=== PATIENT | female | born 1970 | race Caucasian/White ===

== ENCOUNTER 2018-04-12 18:45 | Emergency (ER) | payer OTHER, SELFPAY ==
[2018-04-12 18:53] VITALS: BP 120/60; PULSE 79; RESP 16; TEMP 36.7; O2SAT 100; BMI 23.6
--- NOTE | 2018-04-12 19:14 | ED.ABDPAIN ---
HPI - Abdominal Pain <Nelli Cuevas PA-C - Last Filed: 04/12/18 22:29> General Chief Complaint: Abdominal Pain Stated Complaint: LOWER ABDOMINAL PAIN, SENT BY WALK IN FOR CT Time Seen by Provider: 04/12/18 19:00 Source: patient Mode of arrival: ambulatory Limitations: no limitations History of Present Illness HPI narrative: This healthy 47-year-old female is sent here by the walk-in clinic due to concern for appendicitis. She states that she had onset of abdominal pain late yesterday afternoon that has not improved. She states that pain worsens with walking or any kind of bumping, as well as sometimes with sitting up straight. It is constant at some level. When the pain is worse, she also has nausea. She has not had any vomiting. She denies fever. She denies bowel habit change and states she had 2 small bowel movements today, normal bowel movement yesterday, no blood in the stools. She denies any dysuria or urinary symptoms, no hematuria. No new vaginal discharge. She states she has been able to tolerate fluids, has eaten little today due to pain but is able to tolerate small amounts of food. She denies any chest pain, dyspnea new pain or swelling in her extremities or other new symptoms. She denies any known exposures or recent travel Related Data Home Medications Medication Instructions Recorded Confirmed CA PANTOTHENATE/FOLIC ACID/VIT 1 tab PO QDAY #0 08/11/11 04/12/18 (MULTIVITAMIN) Fish Oil (#OMEGA 3) 1,000 mg PO QDAY #0 08/11/11 04/12/18 Lactobacillus acidophilus capsule 10,000 mmu cells PO DAILY 04/12/18 04/12/18 mecobalamin (vitamin B12) 5,000 mcg PO tab 04/12/18 04/12/18 mcg disintegrating tablet Allergies Allergy/AdvReac Type Severity Reaction Status Date / Time Sulfa (Sulfonamide Allergy Unknown Verified 04/12/18 19:05 Antibiotics) Exam <Nelli Cuevas PA-C - Last Filed: 04/12/18 22:29> Narrative Exam Narrative: GENERAL APPEARANCE: Patient sitting comfortably, in no distress. HEENT: PERRL, EOMI, no scleral icterus NECK: Supple LUNGS: Clear to auscultation bilaterally. HEART: Rate and rhythm regular, normal S1 and S2, no S3 or S4. ABDOMEN: Soft, nondistended, bowel sounds present x 4 quadrants, no masses palpable, no hepatosplenomegaly. Moderate tenderness throughout the lower quadrants with exquisite tenderness and rebound at McBurney's point, no guarding, no CVAT, negative obturator, psoas and [place] heel-jar EXTREMITIES: No edema, no cyanosis DERMATOLOGIC: No jaundice or exanthem NEUROLOGIC: Alert and oriented with normal speech and coordination Initial Vital Signs Initial Vital Signs: Vital Signs Temperature 98.0 F 04/12/18 18:53 Pulse Rate 79 04/12/18 18:53 Respiratory Rate 16 04/12/18 18:53 Blood Pressure 120/60 04/12/18 18:53 Pulse Oximetry 100 04/12/18 18:53 <Roque Mcclain DO - Last Filed: 04/13/18 02:30> Initial Vital Signs Initial Vital Signs: Vital Signs Temperature 98.0 F 04/12/18 18:53 Pulse Rate 79 04/12/18 18:53 Respiratory Rate 16 04/12/18 18:53 Blood Pressure 120/60 04/12/18 18:53 Pulse Oximetry 100 04/12/18 18:53 Course <Nelli Cuevas PA-C - Last Filed: 04/12/18 22:29> Additional Information: I spoke with Dr. Monreal, on-call for surgery and reviewed patient history and exam findings as well as lab and CT results. She is feeling significantly better, has been tolerating oral fluids all along at home and small amounts of food. He felt that she did not need admission tonight. She does not have a PCP, so he advised that she could follow up at his office tomorrow. Advised her that she should call their 1st thing in the morning for appointment unless drastically improved, and she is agreeable. She also agreed to return here if any acutely worsening symptoms again, or new symptoms such as vomiting or fever Orders Ordered: ED Orders 04/12/18 19:22 CT abdomen pelvis w con Stat 04/12/18 19:50 C-Reactive Protein Quant Stat Complete Blood Count AUTO DIFF Stat Comprehensive Metabolic Panel Stat Lipase Stat 04/12/18 20:27 Lactate (Lactic Acid) Stat Discontinued Medications Sodium Chloride (Normal Saline 0.9%) 1,000 mls @ 1,000 mls/hr IV BOLUS ONE Stop: 04/12/18 20:00 Last Infusion: 04/12/18 22:05 Dose: 1,000 mls/hr Admin: 04/12/18 19:36 Dose: 1,000 mls/hr Ketorolac Tromethamine (Toradol) 30 mg IV NOW ONE Stop: 04/12/18 19:22 Last Admin: 04/12/18 19:35 Dose: 30 mg Ondansetron HCl (Zofran) 4 mg IV NOW ONE Stop: 04/12/18 19:22 Last Admin: 04/12/18 19:35 Dose: 4 mg Ondansetron HCl (Zofran Odt Prepack) 1 bottle MISC SEEINSTR ONE Stop: 04/12/18 21:51 Last Admin: 04/12/18 22:04 Dose: 1 bottle Vital Signs - 8 hr 04/12/18 18:53 04/12/18 21:37 04/12/18 22:16 Temperature 98.0 F Pulse Rate 79 74 Respiratory Rate 16 12 Blood Pressure 120/60 Blood Pressure [Right Arm] 112/63 Pulse Oximetry 100 100 99 <Roque Mcclain, DO - Last Filed: 04/13/18 02:30> Orders Ordered: ED Orders 04/12/18 19:22 CT abdomen pelvis w con Stat 04/12/18 19:50 C-Reactive Protein Quant Stat Complete Blood Count AUTO DIFF Stat Comprehensive Metabolic Panel Stat Lipase Stat 04/12/18 20:27 Lactate (Lactic Acid) Stat Discontinued Medications Sodium Chloride (Normal Saline 0.9%) 1,000 mls @ 1,000 mls/hr IV BOLUS ONE Stop: 04/12/18 20:00 Last Infusion: 04/12/18 22:05 Dose: 1,000 mls/hr Admin: 04/12/18 19:36 Dose: 1,000 mls/hr Ketorolac Tromethamine (Toradol) 30 mg IV NOW ONE Stop: 04/12/18 19:22 Last Admin: 04/12/18 19:35 Dose: 30 mg Ondansetron HCl (Zofran) 4 mg IV NOW ONE Stop: 04/12/18 19:22 Last Admin: 04/12/18 19:35 Dose: 4 mg Ondansetron HCl (Zofran Odt Prepack) 1 bottle MISC SEEINSTR ONE Stop: 04/12/18 21:51 Last Admin: 04/12/18 22:04 Dose: 1 bottle Vital Signs - 8 hr 04/12/18 18:53 04/12/18 21:37 04/12/18 22:16 Temperature 98.0 F Pulse Rate 79 74 Respiratory Rate 16 12 Blood Pressure 120/60 Blood Pressure [Right Arm] 112/63 Pulse Oximetry 100 100 99 MDM - Abdominal Pain <Nelli Cuevas PA-C - Last Filed: 04/12/18 22:29> Lab Data Result diagrams: 04/12/18 19:50 04/12/18 19:50 Lab Results 04/12/18 04/12/18 04/12/18 Range/Units 19:50 19:50 20:27 WBC 9.3 (4.5-11.0) X10^3/uL RBC 4.67 (4.0-5.2) X10^6/uL Hgb 14.7 (12.0-16.0) g/dL Hct 42.5 (36-46) % MCV 91.2 (80-100) fL MCH 31.5 (26-34) PG MCHC 34.6 (30-36) % RDW 12.4 (11.6-14.8) % Plt Count 193 (150-400) X10^3/uL Neut % (Auto) 75.2 H (50-75) % Lymph % (Auto) 13.9 L (25-40) % [place] % (Auto) 9.6 (3-14) % Eos % (Auto) 0.9 L (2-4) % Baso % (Auto) 0.4 (0-2) % Neut # (Auto) 7000 H (9975-3587) /uL Sodium 139 (137-145) mmol/L Potassium 3.5 (3.4-5.1) mmol/L Chloride 100 (98-107) mmol/L Carbon Dioxide 31 (22-32) mmol/L BUN 16 (7-17) mg/dL Creatinine 0.70 (0.52-1.04) mg/dL Estimated GFR > 60.0 (>60) mL/min BUN/Creatinine Ratio 22.9 H (6-22) Glucose 103 H (70-100) mg/dL Lactate 1.1 (0.7-2.1) mmol/L Calcium 9.4 (8.4-10.2) mg/dL Total Bilirubin 1.1 (0.2-1.3) mg/dL AST 24 (14-36) IU/L ALT 21 (9-52) IU/L Alkaline Phosphatase 62 (38-126) U/L C-Reactive Protein 5.9 H (<1.0) mg/dL Total Protein 7.2 (6.3-8.2) g/dL Albumin 4.5 (3.5-5.0) g/dL Globulin 2.7 (1.7-4.1) g/dL Albumin/Globulin Ratio 1.7 (1.0-2.8) Lipase 55 (23-300) U/L Point of care testing: Urine Dip Bedside Urine Glucose Negative Bedside Urine Bilirubin - Negative Bedside Urine Ketone - Negative Bedside Urine Occult Blood + Bedside Urine Protein - Negative Bedside Urine Urobilinogen - Negative Bedside Urine Nitrite - Negative Bedside Urine Leukocytes - Negative Esterase Imaging Data CT scan - abdomen: Radiologist's impression: [place] [address] CT Scan Report Signed Patient: Melisa Muhammad MR#: [id number] : 1970 Acct:[id number] Age/Sex: 47 / F Date of Service: 04/12/18 Loc: ED Accession Number: [id number] Procedure: CT abdomen pelvis w con Ordering Provider: Nelli Cuevas P.A-C PROCEDURE: CT ABDOMEN PELVIS W CON INDICATIONS: R. LQ pain TECHNIQUE: After the administration of oral and intravenous contrast, 5 mm thick sections acquired from the diaphragms to the symphysis. 5 mm thick coronal and sagittal reformats were performed. For radiation dose reduction, the following was used: automated exposure control, adjustment of mA and/or kV according to patient size. COMPARISON: None. FINDINGS: Image quality: Excellent. ABDOMEN: Lung bases: Lung bases are clear. Heart size is normal. Solid organs: There is a small hypodensity in the right hepatic dome measuring up to 9 mm which is too small to characterize but likely represents a cyst. The gallbladder appears within normal limits without calcified gallstones. Biliary system is non-dilated. Pancreas enhances normally. Spleen is normal in size and enhancement. No adrenal nodules. Kidneys are normal in size and enhancement, without hydronephrosis. Peritoneum and bowel: Stomach and small bowel loops are normal in caliber and wall thickness. The appendix is at the upper limits of normal in size measuring approximately 7 mm in diameter. There is minimal wall thickening proximally but there is intraluminal gas demonstrated. There is possible minimal associated fat stranding. There is mild segmental wall thickening in the sigmoid colon. Colonic diverticula demonstrated without acute diverticulitis. There is a small amount of free fluid in the pelvis which appears within physiologic limits. Nodes and vessels: No retroperitoneal or mesenteric adenopathy. Aorta and inferior vena cava are normal in caliber. Miscellaneous: No ventral hernias. PELVIS: Genitourinary: Bladder wall thickness is normal. There are bilateral heterogeneous adnexal mass lesions measuring approximately 3.9 x 3.0 cm on the left and 2.7 x 3.0 cm in the right posterior cul-de-sac. Miscellaneous: No inguinal hernias or adenopathy. Bones: No suspicious bony lesions. No vertebral body compression fractures. IMPRESSION: 1. Borderline enlargement and wall thickening of the appendix without definite evidence of appendicitis at this time. Recommend continued clinical followup. 2. Bilateral heterogeneous adnexal masses may represent possible endometriomas but the findings are nonspecific and the differential is broad. Recommend further evaluation with pelvic ultrasound. 3. Mild segmental wall thickening in the sigmoid colon consistent with a nonspecific infectious or inflammatory colitis. Dictated by: Rich Sinha M.D. on 04/12/2018 at 20:52 Approved by: Rich Sinha M.D. on 04/12/2018 at 21:02 <Roque Mcclain DO - Last Filed: 04/13/18 02:30> Lab Data Lab Results 04/12/18 04/12/18 04/12/18 Range/Units 19:50 19:50 20:27 WBC 9.3 (4.5-11.0) X10^3/uL RBC 4.67 (4.0-5.2) X10^6/uL Hgb 14.7 (12.0-16.0) g/dL Hct 42.5 (36-46) % MCV 91.2 (80-100) fL MCH 31.5 (26-34) PG MCHC 34.6 (30-36) % RDW 12.4 (11.6-14.8) % Plt Count 193 (150-400) X10^3/uL Neut % (Auto) 75.2 H (50-75) % Lymph % (Auto) 13.9 L (25-40) % [place] % (Auto) 9.6 (3-14) % Eos % (Auto) 0.9 L (2-4) % Baso % (Auto) 0.4 (0-2) % Neut # (Auto) 7000 H (0501-9591) /uL Sodium 139 (137-145) mmol/L Potassium 3.5 (3.4-5.1) mmol/L Chloride 100 (98-107) mmol/L Carbon Dioxide 31 (22-32) mmol/L BUN 16 (7-17) mg/dL Creatinine 0.70 (0.52-1.04) mg/dL Estimated GFR > 60.0 (>60) mL/min BUN/Creatinine Ratio 22.9 H (6-22) Glucose 103 H (70-100) mg/dL Lactate 1.1 (0.7-2.1) mmol/L Calcium 9.4 (8.4-10.2) mg/dL Total Bilirubin 1.1 (0.2-1.3) mg/dL AST 24 (14-36) IU/L ALT 21 (9-52) IU/L Alkaline Phosphatase 62 (38-126) U/L C-Reactive Protein 5.9 H (<1.0) mg/dL Total Protein 7.2 (6.3-8.2) g/dL Albumin 4.5 (3.5-5.0) g/dL Globulin 2.7 (1.7-4.1) g/dL Albumin/Globulin Ratio 1.7 (1.0-2.8) Lipase 55 (23-300) U/L Point of care testing: Urine Dip Bedside Urine Glucose Negative Bedside Urine Bilirubin - Negative Bedside Urine Ketone - Negative Bedside Urine Occult Blood + Bedside Urine Protein - Negative Bedside Urine Urobilinogen - Negative Bedside Urine Nitrite - Negative Bedside Urine Leukocytes - Negative Esterase Discharge Plan Departure Patient Disposition: Home, Self-Care Clinical Impression: Acute right lower quadrant pain Discharge Date/Time: 04/12/18 22:18 Interventions: ED Discharge Assessment Last Done: 04/12/18 22:16 Instructions: DI for Abdominal Pain-Adult Activity Restrictions/Additional Instructions: You can use the antinausea medicine that we gave you as needed. You should return as we talked about if you have any acutely worsening symptoms such as more pain or vomiting, or new symptoms such as fever. Drink clear fluids tonight and you can have a little bit of bland food such as applesauce, bananas, crackers. Unless you are much better in the morning, please call [facility] first thing and let them know we talked with Dr. Monreal about you in the ED last night and he wanted you to be seen in their office for follow up on Wednesday (no later) Prescriptions: No Action mecobalamin (vitamin B12) 5,000 mcg tablet,disintegrating PO RF: 0 Lactobacillus acidophilus capsule 10,000 mmu cells PO DAILY RF: 0 CA PANTOTHENATE/FOLIC ACID/VIT (MULTIVITAMIN) 1 tab PO QDAY Qty: 0 RF: 0 Fish Oil (#OMEGA 3) 1,000 mg PO QDAY Qty: 0 RF: 0 Referrals: Waqar Monreal MD [Physician] - <Roque Mcclain DO - Last Filed: 04/13/18 02:30> Cosign ED Attending Coselliotature Attestation: I was immediately available in the department for consultation. Documentation has been reviewed. I agree with assessment and plan.
--- NOTE | 2018-04-12 19:22 | DI.CT.S_ITS ---
PROCEDURE: CT ABDOMEN PELVIS W CON INDICATIONS: R. LQ pain TECHNIQUE: After the administration of oral and intravenous contrast, 5 mm thick sections acquired from the diaphragms to the symphysis. 5 mm thick coronal and sagittal reformats were performed. For radiation dose reduction, the following was used: automated exposure control, adjustment of mA and/or kV according to patient size. COMPARISON: None. FINDINGS: Image quality: Excellent. ABDOMEN: Lung bases: Lung bases are clear. Heart size is normal. Solid organs: There is a small hypodensity in the right hepatic dome measuring up to 9 mm which is too small to characterize but likely represents a cyst. The gallbladder appears within normal limits without calcified gallstones. Biliary system is non-dilated. Pancreas enhances normally. Spleen is normal in size and enhancement. No adrenal nodules. Kidneys are normal in size and enhancement, without hydronephrosis. Peritoneum and bowel: Stomach and small bowel loops are normal in caliber and wall thickness. The appendix is at the upper limits of normal in size measuring approximately 7 mm in diameter. There is minimal wall thickening proximally but there is intraluminal gas demonstrated. There is possible minimal associated fat stranding. There is mild segmental wall thickening in the sigmoid colon. Colonic diverticula demonstrated without acute diverticulitis. There is a small amount of free fluid in the pelvis which appears within physiologic limits. Nodes and vessels: No retroperitoneal or mesenteric adenopathy. Aorta and inferior vena cava are normal in caliber. Miscellaneous: No ventral hernias. PELVIS: Genitourinary: Bladder wall thickness is normal. There are bilateral heterogeneous adnexal mass lesions measuring approximately 3.9 x 3.0 cm on the left and 2.7 x 3.0 cm in the right posterior cul-de-sac. Miscellaneous: No inguinal hernias or adenopathy. Bones: No suspicious bony lesions. No vertebral body compression fractures. IMPRESSION: 1. Borderline enlargement and wall thickening of the appendix without definite evidence of appendicitis at this time. Recommend continued clinical followup. 2. Bilateral heterogeneous adnexal masses may represent possible endometriomas but the findings are nonspecific and the differential is broad. Recommend further evaluation with pelvic ultrasound. 3. Mild segmental wall thickening in the sigmoid colon consistent with a nonspecific infectious or inflammatory colitis. Dictated by: Rich Sinha M.D. on 04/12/2018 at 20:52 Approved by: Rich Sinah M.D. on 04/12/2018 at 21:02
[2018-04-12] MEDS: KETOROLAC 60 MG/2 ML VIAL 30 MG IV (19:35)
[2018-04-12] MEDS: ONDANSETRON 4 MG/2 ML INJ IV (19:35)
[2018-04-12] MEDS: SODIUM CHLORIDE 0.9% 1,000 ML 1000 ML IV (19:36)
--- NOTE | 2018-04-12 20:09 | PC.NURSE ---
oral contrast began at 1949. Maggy in CT scan alerted. Pt denies nausea at present. IV fluids infusing without difficulty or s/sx of irritation or infilitration.
[2018-04-12 20:12] LABS: Add Manual Diff / Slide Review NO; Basophils Percent Auto 0.4 % (0-2); Eosinophils Percent Auto 0.9 % (2-4); Hematocrit 42.5 % (36-46); Hemoglobin 14.7 g/dL (12.0-16.0); Lymphocytes Percent Auto 13.9 % (25-40); Mean Corpuscular HGB Conc 34.6 % (30-36); Mean Corpuscular Hemoglobin 31.5 PG (26-34); Mean Corpuscular Volume 91.2 fL (80-100); Monocytes Percent Auto 9.6 % (3-14); Neutrophils Absolute Auto 7000 /uL (3000-5900); Neutrophils Percent Auto 75.2 % (50-75); Platelet Count 193 X10^3/uL (150-400); Red Blood Cell Count 4.67 X10^6/uL (4.0-5.2); Red Cell Distribution Width 12.4 % (11.6-14.8); White Blood Cell Count 9.3 X10^3/uL (4.5-11.0)
[2018-04-12 20:31] LABS: Alanine Aminotransferase 21 IU/L (9-52); Albumin 4.5 g/dL (3.5-5.0); Albumin Globulin Ratio 1.7 (1.0-2.8); Alkaline Phosphatase 62 U/L (38-126); Aspartate Aminotransferase 24 IU/L (14-36); BUN Creatinine Ratio 22.9 (6-22); Bilirubin Total 1.1 mg/dL (0.2-1.3); Blood Urea Nitrogen 16 mg/dL (7-17); C-Reactive Protein Quant 5.9 mg/dL (<1.0); Calcium 9.4 mg/dL (8.4-10.2); Carbon Dioxide 31 mmol/L (22-32); Chloride 100 mmol/L (98-107); Estimated Glomerular Filt Rate > 60.0 mL/min (>60); Globulin 2.7 g/dL (1.7-4.1); Glucose 103 mg/dL (70-100); HEMOLYSIS 19 (0-50); Lipase 55 U/L (23-300); Potassium 3.5 mmol/L (3.4-5.1); Sodium 139 mmol/L (137-145); Total Protein 7.2 g/dL (6.3-8.2)
[2018-04-12 20:51] LABS: Lactate (Lactic Acid) 1.1 mmol/L (0.7-2.1)
[2018-04-12 21:37] VITALS: BP 112/63; PULSE 74; RESP 12; O2SAT 100
[2018-04-12] MEDS: ONDANSETRON 4 MG ODT PREPACK 1 BOTTLE MISC (22:04)
[2018-04-12 22:16] VITALS: O2SAT 99
[2018-04-14 10:21] LABS: Cancer Antigen 125 10 U/mL (0-35)
== END 2018-04-12 22:18 | disposition home or self-care (01) ==
PROVIDERS: Specialist; Emergency Provider Internal Medicine; PCP Nurse Practitioner
DX: R10.31 Right lower quadrant pain (principal)
CPT/HCPCS: 36591; 74177; 80053; 81003; 83605; 83690; 85025; 86140; 86304; 96361; 96374; 96375; 99283; 99285; J1885; J2405; Q9967

== ENCOUNTER → 2018-04-13 16:42 | Outpatient (CLI) | payer OTHER, SELFPAY ==
--- NOTE | 2018-04-13 16:43 | DI.US.S_ITS ---
PROCEDURE: US PELVIC COMPLETE INDICATIONS: pelvic masses on CT scan TECHNIQUE: Real-time scanning was performed of the pelvic organs, with image documentation. Additional endovaginal scanning was necessary due to incomplete visualization of the adnexal and endometrial structures by transabdominal scanning. COMPARISON: [facility], CT, CT ABDOMEN PELVIS W CON, 04/12/2018, 20:22. FINDINGS: Transabdominal scanning: Limited scanning through the kidneys shows no hydronephrosis. No pathologic free abdominal or pelvic fluid. Endovaginal scanning: Uterus: Uterus is surgically absent. Ovaries: The right ovary measures 3 x 1.9 x 1.7 cm. On the right ovary, there is a solid heterogeneous mass that measures 19 x 17 x 16 mm. The left ovary is not seen. No left adnexal masses are seen. Along the midline of the pelvis, there is a solid mass with internal vascular flow that measures 3.4 x 3.1 x 4.4 cm. IMPRESSION: Pelvic masses are seen, including a 4.4 cm mass with internal flow seen along the midline and a 19 mm mass on the right ovary. The imaging appearance is nonspecific, although these masses may represent endometriomas. As clinically appropriate, please consider a dedicated gynecological protocol MRI (without and with contrast) for further evaluation (assuming that there is no contraindication). Status post hysterectomy. Dictated by: Iggy Abel M.D. on 04/13/2018 at 16:22 Approved by: Iggy Abel M.D. on 04/13/2018 at 16:26
== END ==
PROVIDERS: Visit Provider Specialist
DX: R19.00 Intra-abdominal and pelvic swelling, mass and lump, unspecified site (principal)
CPT/HCPCS: 76830; 76856

== ENCOUNTER → 2018-04-14 11:48 | Outpatient (CLI) | payer OTHER, SELFPAY ==
[2018-04-14 13:25] LABS: Cancer Antigen 125 11 U/mL (0-35)
[2018-04-20 12:45] LABS: Human HE4 Antigen 41 pmol/L
== END ==
PROVIDERS: Visit Provider Obstetrics & Gynecology
DX: Z12.73 Encounter for screening for malignant neoplasm of ovary (principal); R93.5 Abnormal findings on diagnostic imaging of other abdominal regions, including retroperitoneum
CPT/HCPCS: 36415; 86304; 86305

== ENCOUNTER 2018-04-29 06:49 | Day surgery (SDC) | payer OTHER, SELFPAY ==
[2018-04-20 09:51] VITALS: BMI 23.6
[2018-04-29] VITALS (10 sets, daily range): BP systolic 100–120; BP diastolic 63–78; PULSE 60–80; RESP 10–16; TEMP 36.1–36.6; O2SAT 99–100; BMI 23.6
--- NOTE | 2018-04-29 | PATH_ITS ---
[facility] Accession Number: [id number] . 01 Material submitted: . FIBROID AND BILATERAL TUBES . 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 Portions of bilateral fallopian tubes with unilateral benign paratubal cyst, negative for atypia. MRV/05/02/2018 . 02 Electronically signed: . Stevo Gonzalez MD, Pathologist NPI- [id number] . 01 Gross description: . Received in formalin, labeled fibroid + bilateral tubes, are multiple pieces of white whorled homogenous firm tissue (18 grams, 8.5 x 4.5 x 2.2 cm in aggregate) and two fimbriae (1.8 x 1.2 x 0.7 cm and 2.2 x 1.5 x 1.0 cm) with pizarro smooth and shiny serosa and pizarro unremarkable lumens. Section code: (A1, A2) white whorled tissue, merchandising representative; (A3, A4) one bivalved fimbria in each cassette. ([id number]) /[facility] . 02 Pathologist provided ICD-10: D25.9 . 02 CPT . 211710 Performed at: 01 [facility] [address], [place], [place] [id number] MD Rich Stoddard MD Phone: [phone] Performed at: 02 [facility] [address] [place], [place] [id number] MD Jesse Del Rio MD Phone: [phone]
[2018-04-29] MEDS: LACTATED RINGERS 1,000 ML 42 ML IV (07:10)
--- NOTE | 2018-04-29 08:28 | SUR.OPER ---
Lithotomy on padded OR bed, head on pillow, right arm secured on padded arm board at <90 degrees abduction. Legs secured in padded yellow fins stirrups. left arm padded and tucked
[2018-04-29] MEDS: BUPIVACAINE 0.5% W/ EPI (PF) VIAL 30 ML INJ (08:46)
--- NOTE | 2018-04-29 09:20 | PM.PREOP ---
Pre-operative Note Interval Note Pre-op Check: Yes History & Physical exam performed today by Physician Changes: No
[2018-04-29] MEDS: HYDROCODONE/ACET 5/325 TABLET 1 TAB PO (10:04)
--- NOTE | 2018-04-29 14:52 | SUR.PHASEII ---
1110 Pt ambulated to the bathroom, sba. + void. Martha-pad CDI per SELENA Leija. Pt requested to d/c.
--- NOTE | 2018-06-30 14:24 | P.OP_ITS ---
Operative Date/Time/Diagnoses Date of procedure: 04/29/18 Time of procedure: 09:45 Pre-op diagnosis: Intraperitoneal fibroid Pelvic pain Post-op diagnosis: same Procedure: Procedures Operation Date: 04/29/18 07:45 Actual Procedures Side Surgeon p BILATERAL SALPINGECTOMY AND EXCISION OF INTRA-PERITONEAL FIBROID Bilateral Chanel Benavides MD Indications: Intraperitoneal fibroid Pelvic pain Surgeon: Chanel Benavides Anesthesia Type: General Operative Notes Findings: 4 cm intraperitoneal fibroid at the top of the vaginal cuff Normal tubes and ovaries Closure Type: primary Specimen(s): left tube, right tube and other (Fibroid) Applied: catheter Estimated blood loss (mL): 10 Blood products transfused: none Procedure in detail: After informed consent was obtained, the patient was taken to the operating room where she was placed in the dorsal supine position. After adequate general endotracheal anesthesia was achieved, she was placed in the dorsal lithotomy position, and prepped and draped in the usual sterile fashion. A time-out was performed. A moistened sponge stick was placed into the vagina. Attention was then turned to the abdomen where 6 cc of 0.5% Marcaine with epinephrine were injected in the umbilical fold. A 5 mm incision was made through the previous incision. The Veress needle was placed into the peritoneal cavity, and its placement confirmed by aspiration drop test. The abdominal cavity was insufflated with 3.3 L of CO2. The Veress needle was removed and a 5 mm trocar was placed without difficulty. 3 other incisions were made 2 of them midway between the pubic symphysis and umbilicus 4 cm lateral to the midline, through the previous incisions. 6 cc of 0.5% Marcaine with epinephrine were injected prior to the incisions. Two 5 mm trocars were placed without difficulty. 4th incision was made above the pubic symphysis after 6 cc of 0.5% Marcaine with epinephrine were injected and a 12 mm incision was made. A 12 mm trocar was placed without difficulty. The fibroid was grasped with a single-tooth tenaculum. Using the Endo Teodoro the fibroid was dissected off of the peritoneum with care to avoid vasculature. The fibroid was placed into the cul-de-sac. The right tube was grasped with an atraumatic grasper. Using the PlasmaKinetic was settings of 40 w, the meso salpinx was cauterized and cut. This was repeated on the patient's left side. Hemostasis was achieved. An endobag was placed through the suprapubic incision. The fibroid and both tubes were placed into the bag. The trocar was removed. The bag was brought up to the incision. The fibroid was morcellated in 4 pieces. The remainder the bag was removed with the tubes inside. The pelvis was inspected and there was no bleeding noted. The instruments were removed from the abdomen. The CO2 was allowed to escape. The trocars were removed. The incisions were repaired with 4 0 undyed Vicryl in a subcuticular fashion. The suprapubic incision was closed on the fascia with 0 Vicryl. And 4 0 undyed Vicryl in a subcuticular fashion on the skin. A moistened sponge stick was removed from the vagina. Sponge, lap, and instrument counts were correct x2. The patient tolerated the procedure well , and was taken to PACU in stable condition. Complications: none Post-operative Condition: stable Disposition: PACU Plan for aftercare: Home after recovery
== END 2018-04-29 11:55 | disposition home or self-care (01) ==
PROVIDERS: Visit Provider Obstetrics & Gynecology
PROC: 0UT24ZZ Resection of Bilateral Ovaries, Percutaneous Endoscopic Approach (ICD-10-PCS; CPT 58661; principal; 2018-04-29 07:45)
DX: D25.9 Leiomyoma of uterus, unspecified (principal); N83.9 Noninflammatory disorder of ovary, fallopian tube and broad ligament, unspecified
CPT/HCPCS: 58661; 58662; J1100; J2405; J2704; J3010

== ENCOUNTER → 2021-01-30 08:21 | Outpatient (CLI) | payer OTHER, SELFPAY ==
[2021-01-30 08:51] LABS: Add Manual Diff / Slide Review NO; Basophils Absolute Auto 0 /uL (0-100); Basophils Percent Auto 1.3 % (0-2); Eosinophils Absolute Auto 100 /uL (0-450); Eosinophils Percent Auto 3.4 % (2-4); Hematocrit 42.5 % (36-46); Hemoglobin 14.3 g/dL (12.0-16.0); Lymphocytes Absolute Auto 1400 /uL (1100-4500); Lymphocytes Percent Auto 41.7 % (25-40); Mean Corpuscular HGB Conc 33.6 % (30-36); Mean Corpuscular Hemoglobin 30.7 PG (26-34); Mean Corpuscular Volume 91.5 fL (80-100); Monocytes Absolute Auto 300 /uL (0-900); Monocytes Percent Auto 9.3 % (3-14); Neutrophils Absolute Auto 1500 /uL (1500-7000); Neutrophils Percent Auto 44.3 % (50-75); Platelet Count 197 X10^3/uL (150-400); Red Blood Cell Count 4.65 X10^6/uL (4.0-5.2); Red Cell Distribution Width 13.2 % (11.6-14.8); White Blood Cell Count 3.3 X10^3/uL (4.5-11.0)
[2021-01-30 09:03] LABS: Alanine Aminotransferase 14 IU/L (<35); Albumin 4.2 g/dL (3.5-5.0); Albumin Globulin Ratio 1.6 (1.0-2.8); Alkaline Phosphatase 62 U/L (38-126); Aspartate Aminotransferase 25 IU/L (14-36); BUN Creatinine Ratio 22.5 (6-22); Bilirubin Total 0.9 mg/dL (0.2-1.3); Blood Urea Nitrogen 18 mg/dL (7-17); Calcium 9.3 mg/dL (8.4-10.2); Carbon Dioxide 31 mmol/L (22-32); Chloride 102 mmol/L (98-107); Cholesterol 210 mg/dL (140-199); Estimated Glomerular Filt Rate > 60.0 mL/min (>60); Globulin 2.7 g/dL (1.7-4.1); Glucose 103 mg/dL (70-100); HDL Cholesterol 63 mg/dL (40-60); HEMOLYSIS < 15 (0-50); LDL Cholesterol Calculated 133 mg/dL (<100); Sodium 138 mmol/L (137-145); Total Protein 6.9 g/dL (6.3-8.2); Triglycerides 71 mg/dL (35-150)
[2021-01-30 09:04] LABS: Potassium 4.2 mmol/L (3.4-5.1)
[2021-01-30 09:34] LABS: TSH w/ Reflex to FT4 1.44 uIU/mL (0.47-4.68)
== END ==
PROVIDERS: PCP Physician Assistant; Referring Provider Physician Assistant; Visit Provider Physician Assistant
DX: Z00.00 Encounter for general adult medical examination without abnormal findings (principal); Z13.220 Encounter for screening for lipoid disorders; Z13.29 Encounter for screening for other suspected endocrine disorder
CPT/HCPCS: 36415; 80053; 80061; 82306; 84443; 85025

== ENCOUNTER → 2021-03-10 15:54 | Outpatient (CLI) | payer OTHER, SELFPAY ==
--- NOTE | 2021-03-10 | DI.MG.S_ITS ---
BILATERAL DIGITAL SCREENING MAMMOGRAM 3D/2D WITH CAD: 03/10/2021 CLINICAL: Routine screening. Baseline exam. No prior exams were available for comparison. The tissue of both breasts is heterogeneously dense. This may lower the sensitivity of mammography. Current study was also evaluated with a Computer Aided Detection (CAD) system. There are grouped heterogeneous calcifications in the right breast at 1 o'clock anterior depth. There also is a 1.2 cm oval equal density asymmetry in the right breast posterior depth superior region seen on the mediolateral oblique view only. No other significant masses, calcifications, or other findings are seen in either breast. IMPRESSION: INCOMPLETE: NEEDS ADDITIONAL IMAGING EVALUATION The grouped heterogeneous calcifications in the right breast at 1 o'clock anterior depth are indeterminate. Diagnostic mammogram for additional views to include mediolateral and spot magnification views is recommended. The 1.2 cm oval equal density asymmetry in the right breast posterior depth superior region seen on the mediolateral oblique view only resembles a cyst or a fibroadenoma and is indeterminate. Additional views with possible ultrasound are recommended. This exam was interpreted at Station ID: [id number]. NOTE: For mammograms, a report in lay terms will be sent to the patient. Approximately 15% of breast malignancies will not be visualized mammographically. In the management of a palpable breast mass, a negative mammogram must not discourage biopsy of a clinically suspicious lesion. Electronically Signed By: Jasmeet Miranda M.D. at/:03/10/2021 16:53:21 letter sent: Additional Imaging Needed ACR BI-RADS Category 0: Incomplete 3340F
== END ==
PROVIDERS: PCP Physician Assistant; Referring Provider Physician Assistant; Visit Provider Physician Assistant
DX: Z12.31 Encounter for screening mammogram for malignant neoplasm of breast (principal)
CPT/HCPCS: 77063; 77067

== ENCOUNTER → 2021-04-03 08:37 | Outpatient (CLI) | payer OTHER, SELFPAY ==
--- NOTE | 2021-04-03 | DI.MG.S_ITS ---
UNILATERAL RIGHT DIGITAL DIAGNOSTIC MAMMOGRAM 3D/2D WITH ADDITIONAL VIEWS: 04/03/2021 CLINICAL: Additional evaluation requested from prior study. Comparison is made to exam dated: [facility]. The tissue of right breast is heterogeneously dense. This may lower the sensitivity of mammography. There are grouped heterogeneous calcifications in the right breast at 1 o'clock anterior depth. There also is a 1.2 cm oval equal density asymmetry in the right breast posterior depth superior region seen on the mediolateral oblique view only. These are similar in appearance to the screening mammogram 03/10/2021. No other significant masses or calcifications are seen in the breast. IMPRESSION: INCOMPLETE: NEEDS ADDITIONAL IMAGING EVALUATION Calcifications and asymmetry in the right breast are similar. Ultrasound of both regions is recommended and will be performed immediately following this exam. This exam was interpreted at Station ID: [id number]. NOTE: For mammograms, a report in lay terms will be sent to the patient. Approximately 15% of breast malignancies will not be visualized mammographically. In the management of a palpable breast mass, a negative mammogram must not discourage biopsy of a clinically suspicious lesion. Electronically Signed By: Len Toussaint M.D. jr/:04/03/2021 10:27:49 ACR BI-RADS Category 0: Incomplete 3340F
--- NOTE | 2021-04-03 | DI.US.S_ITS ---
LIMITED ULTRASOUND OF RIGHT BREAST: 04/03/2021 CLINICAL: Patient returns today to evaluate a focal asymmetry in the right breast. Comparison is made to exams dated: 04/03/2021 mammogram and 03/10/2021 mammogram - [facility]. Color flow and real-time ultrasound of the right breast 9-12 o'clock region were performed. Jara scale images of the real-time examination were reviewed. There is a 1.2 cm mass in the right breast at 12 o'clock posterior depth. There also are multiple clusters of oval complicated cysts in the right breast superior medial quadrant anterior depth. These clusters of oval complicated cysts are hypoechoic. These correlate with mammography findings. There are related micro calcifications. Color flow imaging demonstrates that there is no increase in vascularity. IMPRESSION: PROBABLY BENIGN The previously questioned asymmetry and calcifications correspond sonographically to multiple cysts and clustered microcysts, at least one of which has an associated internal calcificaiton. Follow-up mammogram and ultrasound in 6 months is recommended to demonstrate stability. This exam was interpreted at Station ID: [id number]. Electronically Signed By: Len Toussaint M.D. jr/:04/03/2021 10:33:14 Entry: - 04/04/2021 08:29:34 letter sent: Followup Recommended Ultrasound BI-RADS: 3 Probably benign
== END ==
PROVIDERS: PCP Physician Assistant; Referring Provider Physician Assistant; Visit Provider Physician Assistant
DX: R92.8 Other abnormal and inconclusive findings on diagnostic imaging of breast (principal); R92.1 Mammographic calcification found on diagnostic imaging of breast; N60.01 Solitary cyst of right breast
CPT/HCPCS: 76642; 77065; G0279

== ENCOUNTER → 2021-09-22 08:41 | Outpatient (CLI) | payer OTHER, SELFPAY ==
--- NOTE | 2021-09-22 | DI.MG.S_ITS ---
BILATERAL DIGITAL DIAGNOSTIC MAMMOGRAM 3D/2D: 09/22/2021 CLINICAL: Short follow up, due bilateral. Comparison is made to exams dated: 04/03/2021 mammogram and 03/10/2021 mammogram - [facility]. The tissue of both breasts is heterogeneously dense. This may lower the sensitivity of mammography. There are grouped heterogeneous calcifications in the right breast at 1 o'clock anterior depth. These are not significantly changed. No other significant masses, calcifications, or other findings are seen in either breast. IMPRESSION: PROBABLY BENIGN The grouped heterogeneous calcifications in the right breast are unchanged and are probably benign. A follow-up mammogram in 12 months is recommended. This exam was interpreted at Station ID: [id number]. NOTE: For mammograms, a report in lay terms will be sent to the patient. Approximately 15% of breast malignancies will not be visualized mammographically. In the management of a palpable breast mass, a negative mammogram must not discourage biopsy of a clinically suspicious lesion. Electronically Signed By: Len Toussaint M.D. jr/:09/24/2021 09:20:36 letter sent: Followup Recommended ACR BI-RADS Category 3: Probably benign [id number]
== END ==
PROVIDERS: PCP Physician Assistant; Referring Provider Physician Assistant; Visit Provider Physician Assistant
DX: R92.8 Other abnormal and inconclusive findings on diagnostic imaging of breast (principal); R92.1 Mammographic calcification found on diagnostic imaging of breast
CPT/HCPCS: 77066; G0279

== ENCOUNTER → 2022-02-09 16:02 | Outpatient (CLI) | payer OTHER, SELFPAY ==
[2022-02-09 16:28] LABS: COVID19 -Nasal RAPID Negative (Negative)
== END ==
PROVIDERS: PCP Physician Assistant; Visit Provider Nurse Practitioner Family
DX: Z20.822 Contact with and (suspected) exposure to COVID-19 (principal)
CPT/HCPCS: 87635

== ENCOUNTER → 2022-11-23 09:00 | Outpatient (CLI) | payer BC, SELFPAY ==
--- NOTE | 2022-11-23 | DI.MG.S_ITS ---
BILATERAL DIGITAL DIAGNOSTIC MAMMOGRAM 3D/2D SHORT-TERM FOLLOW-UP: 11/23/2022 CLINICAL: Short term follow up of the right breast, due for bilateral imaging. Comparison is made to exams dated: 09/22/2021 mammogram, 04/03/2021 mammogram, and 03/10/2021 mammogram - [facility]. Both breasts are heterogeneously dense, which may obscure small masses (category c / 51-75% glandular tissue). There are benign grouped heterogeneous calcifications in the right breast at 1 o'clock anterior depth. These are not significantly changed. No other significant masses, calcifications, or other findings are seen in either breast. IMPRESSION: BENIGN There is no mammographic evidence of malignancy. Calcifications are stable for 2 years. Return to annual mammogram screening schedule is recommended. Based on the Tyrer Cuzick model (a risk assessment model) the patient's lifetime risk is 12.0% and her 10 year risk is 3.0%. According to the ACR, ACS, and NCCN guidelines, an annual breast MRI exam along with mammogram is recommended if the patient's lifetime risk is 20% or greater. This exam was interpreted at Station ID: [id number]. NOTE: For mammograms, a report in lay terms will be sent to the patient. Approximately 15% of breast malignancies will not be visualized mammographically. In the management of a palpable breast mass, a negative mammogram must not discourage biopsy of a clinically suspicious lesion. Electronically Signed By: Kaden Levy M.D. acr/:11/23/2022 09:37:37 letter sent: Normal Exam ACR BI-RADS Category 2: Benign Finding(s) 3342F
== END ==
PROVIDERS: PCP Physician Assistant; Referring Provider Physician Assistant; Visit Provider Physician Assistant
DX: R92.8 Other abnormal and inconclusive findings on diagnostic imaging of breast (principal); R92.1 Mammographic calcification found on diagnostic imaging of breast
CPT/HCPCS: 77066; G0279

== ENCOUNTER → 2024-03-29 08:29 | Outpatient (CLI) | payer OTHER, SELFPAY ==
--- NOTE | 2024-03-29 08:31 | DI.MG.S_ITS ---
BILATERAL DIGITAL SCREENING MAMMOGRAM 3D/2D WITH CAD: 03/29/2024 CLINICAL: Routine screening. Comparison is made to exams dated: 11/23/2022 mammogram, 09/22/2021 mammogram, 04/03/2021 mammogram, and 03/10/2021 mammogram - [facility]. Both breasts are heterogeneously dense, which may obscure small masses (category c / 51-75% glandular tissue). Current study was also evaluated with a Computer Aided Detection (CAD) system. There is an oval mass in the left breast at 8 o'clock middle depth. This is increased in size. No other significant masses, calcifications, or other findings are seen in either breast. IMPRESSION: INCOMPLETE: NEEDS ADDITIONAL IMAGING EVALUATION The oval mass in the left breast is indeterminate. Additional views with possible ultrasound are recommended. Based on the Tyrer Cuzick model (a risk assessment model) the patient's lifetime risk is 11.9% and her 10 year risk is 3.1%. According to the ACR, ACS, and NCCN guidelines, an annual breast MRI exam along with mammogram is recommended if the patient's lifetime risk is 20% or greater. This exam was interpreted at Station ID: [id number]. NOTE: For mammograms, a report in lay terms will be sent to the patient. Approximately 15% of breast malignancies will not be visualized mammographically. In the management of a palpable breast mass, a negative mammogram must not discourage biopsy of a clinically suspicious lesion. Electronically Signed By: Valentin espinosa/ritesh:03/29/2024 09:23:18 letter sent: Additional Imaging Needed ACR BI-RADS Category 0: Incomplete 3340F
== END ==
PROVIDERS: PCP Registered Nurse; Referring Provider Registered Nurse; Visit Provider Registered Nurse
DX: Z12.31 Encounter for screening mammogram for malignant neoplasm of breast (principal); R92.333 Mammographic heterogeneous density, bilateral breasts
CPT/HCPCS: 77063; 77067

== ENCOUNTER → 2024-04-17 | Outpatient (CLI) | payer OTHER, SELFPAY ==
--- NOTE | 2024-04-17 13:23 | DI.MG.S_ITS ---
UNILATERAL LEFT DIGITAL DIAGNOSTIC MAMMOGRAM 3D/2D WITH ADDITIONAL VIEWS: 04/17/2024 CLINICAL: Additional evaluation requested from prior study. Comparison is made to exams dated: 03/29/2024 mammogram, 11/23/2022 mammogram, and 09/22/2021 mammogram - [facility]. The left breast is heterogeneously dense, which may obscure small masses (category c / 51-75% glandular tissue). There is an oval mass in the left breast at 8 o'clock middle depth. This is seen in additional views. No other significant masses or calcifications are seen in the breast. IMPRESSION: INCOMPLETE: NEEDS ADDITIONAL IMAGING EVALUATION The oval mass in the left breast is indeterminate. An ultrasound is recommended. Based on the Tyrer Cuzick model (a risk assessment model) the patient's lifetime risk is 11.9% and her 10 year risk is 3.1%. According to the ACR, ACS, and NCCN guidelines, an annual breast MRI exam along with mammogram is recommended if the patient's lifetime risk is 20% or greater. This exam was interpreted at Station ID: [id number]. NOTE: For mammograms, a report in lay terms will be sent to the patient. Approximately 15% of breast malignancies will not be visualized mammographically. In the management of a palpable breast mass, a negative mammogram must not discourage biopsy of a clinically suspicious lesion. Electronically Signed By: Valentin espinosa/ritesh:04/17/2024 14:40:26 ACR BI-RADS Category 0: Incomplete 3340F
--- NOTE | 2024-04-17 13:24 | DI.US.S_ITS ---
LIMITED ULTRASOUND OF LEFT BREAST: 04/17/2024 CLINICAL: Patient returns today to evaluate a focal asymmetry in the left breast. Comparison is made to exams dated: 04/17/2024 mammogram, 03/29/2024 mammogram, 11/23/2022 mammogram, and 09/22/2021 mammogram - [facility]. Color flow, real-time, and continuous wave Doppler ultrasound of the left breast lower inner quadrant were performed. There is a 3.7 cm x 3.9 cm x 1.6 cm cyst with a septated internal wall in the left breast at 8 o'clock middle depth 3 cm from the nipple. IMPRESSION: PROBABLY BENIGN The 3.7 cm x 3.9 cm x 1.6 cm cyst in the left breast is probably benign. A follow-up ultrasound in 6 months is recommended to demonstrate stability. This exam was interpreted at Station ID: [id number]. Electronically Signed By: Valentin espinosa/ritesh:04/17/2024 14:41:23 letter sent: Followup Recommended Ultrasound BI-RADS: 3 Probably benign
== END ==
PROVIDERS: PCP Registered Nurse; Referring Provider Registered Nurse; Visit Provider Registered Nurse
DX: R92.8 Other abnormal and inconclusive findings on diagnostic imaging of breast (principal); R92.332 Mammographic heterogeneous density, left breast; N60.02 Solitary cyst of left breast
CPT/HCPCS: 76642; 77065; G0279

== ENCOUNTER → 2024-09-25 13:36 | Outpatient (CLI) | payer OTHER, SELFPAY ==
[2024-09-25 14:10] LABS: Bacteria Urine Occasional (0-1); RBC Urine None Seen (0-5/HPF); Squamous Epithelial Cell Urine 0-1 /HPF (0-5/HPF); Urine Volume 10mL (spun); WBC Urine 1-5/HPF (0-5/HPF)
[2024-09-25 14:11] LABS: Culture Indicated Urine Cult Not Indicated
== END ==
LOC: LAB 13:39
PROVIDERS: PCP Physician Assistant; Referring Provider Physician Assistant; Visit Provider Physician Assistant
DX: N39.0 Urinary tract infection, site not specified (principal)
CPT/HCPCS: 36415; 81015; 87086

== ENCOUNTER → 2024-10-19 13:27 | Outpatient (CLI) | payer OTHER, SELFPAY ==
--- NOTE | 2024-10-19 13:29 | DI.US.S_ITS ---
LIMITED ULTRASOUND OF LEFT BREAST: 10/19/2024 CLINICAL: Patient returns today to evaluate a focal asymmetry in the left breast. Comparison is made to exams dated: 04/17/2024 ultrasound, 04/17/2024 mammogram, 03/29/2024 mammogram, 11/23/2022 mammogram, and 09/22/2021 mammogram - [facility]. Color flow and real-time ultrasound of the left breast 8-9 o'clock region were performed. Jara scale images of the real-time examination were reviewed. There is a 5.2 cm x 3.8 cm x 1.5 cm cyst with a septated internal wall in the left breast at 8 o'clock middle depth 3 cm from the nipple. This cyst is anechoic. This abnormality is increased in size, (previously measured 3.9 cm). Small adjacent hypoechoic cyst measuring 0.4 cm. IMPRESSION: PROBABLY BENIGN The 5.2 cm mildly complicated cyst in the left breast is probably benign. A follow-up ultrasound in 6 months is recommended. Aspiration could be considered if symptomatic. Patient will be due for mammograms at that time. Exam findings were conveyed to the patient. This exam was interpreted at Station ID: [id number]. Electronically Signed By: Davion Bermudez M.D. [facility] – [place], [place]/:10/19/2024 14:20:58 letter sent: Followup Recommended ACR BI-RADS Category 3: Probably Benign
== END ==
LOC: US 13:28
PROVIDERS: PCP Registered Nurse; Referring Provider Registered Nurse; Visit Provider Registered Nurse
DX: R92.8 Other abnormal and inconclusive findings on diagnostic imaging of breast (principal); N60.02 Solitary cyst of left breast
CPT/HCPCS: 76642

== ENCOUNTER → 2025-04-13 09:06 | Outpatient (CLI) | payer OTHER, SELFPAY ==
--- NOTE | 2025-04-13 09:08 | DI.US.S_ITS ---
MM diagnostic mammo BI, US breast LT limited: 04/13/2025 BI-RADS: 4A CLINICAL: 54-year old female for bilateral diagnostic mammogram and left diagnostic breast ultrasound that is a follow-up to ultrasound, left on 10/19/2024. Tyrer- Cuzick lifetime risk of 7.9%. No personal or first-degree family history of breast cancer. PRIOR EXAMS 04/17/2024, 03/29/2024, 11/23/2022, 09/22/2021. MAMMOGRAPHY TECHNIQUE: 2D and 3D (tomosynthesis) digital mammographic views obtained, with additional images as needed for full coverage. Current study was also evaluated with a Computer Aided Detection (CAD) system. ULTRASOUND TECHNIQUE TARGETED Right Breast Ultrasound: Real-time ultrasound exam was performed focused to area of clinical and/or imaging concern. Real-time carlos scale and color doppler imaging of the area of clinical interest was performed with image documentation. DENSITY C. The breasts are heterogeneously dense, which may obscure small masses. MAMMOGRAPHY FINDINGS Right: Benign-appearing calcification noted on the right. There are no suspicious masses, calcifications, or other findings in the breast. No significant change from comparison. Left: Lower Inner at 8:00, Middle depth: Correlating with prior imaging concern there is a circumscribed, oval mass present that has increased in size. ULTRASOUND FINDINGS Left: Lower Inner at 8:00, 3 cm from nipple, measuring 4.6 x 1.5 x 6 cm - previously measuring (10/19/2024) 3.8 x 1.5 x 5.2 cm - (04/17/2024) 3.7 x 1.5 x 3.9 cm: The cyst is minimally complex with septations and mural nodularity, favored to represent adherent debris rather than a complex cystic-solid mass. On a previous image from 10/19/2024, one of the septations demonstrated internal flow. IMPRESSION: Right * No evidence of malignancy with benign findings. Left: Lower Inner at 8:00, 3 cm from nipple, measuring 4.6 x 1.5 x 6 cm - previously measuring (10/19/2024) 3.8 x 1.5 x 5.2 cm - (04/17/2024) 3.7 x 1.5 x 3.9 cm * Low Suspicion for Malignancy. RECOMMENDATIONS Left: Lower Inner at 8:00, 3 cm from nipple * Cyst aspiration for further evaluation to be performed at earliest convenience (Suspicion for malignancy is low based on the imaging features which suggest an enlarging mildly complicated cyst; however, procedure may be converted to a core biopsy if any solid component is found that does not resolve with aspiration). COMMENTS: Findings and recommendations were conveyed to the patient during today's evaluation. OVERALL ASSESSMENT CATEGORY BI-RADS-4: Suspicious. ELECTRONICALLY SIGNED: Antoinette Feliciano M.D. on 04/13/2025 at 10:57:35 AM PT Interpreting Station ID: [id number]
== END ==
PROVIDERS: PCP Physician Assistant; Referring Provider Physician Assistant; Visit Provider Physician Assistant
DX: R92.8 Other abnormal and inconclusive findings on diagnostic imaging of breast (principal); R92.1 Mammographic calcification found on diagnostic imaging of breast; N60.02 Solitary cyst of left breast; R92.333 Mammographic heterogeneous density, bilateral breasts
CPT/HCPCS: 76642; 77066; G0279